=== PATIENT | male | born 1985 | race Hispanic/Latino ===

== ENCOUNTER 2017-11-25 14:29 | Emergency (ER) | payer OTHER ==
[2017-11-25 15:08] LABS: BASOPHILS % (AUTO) 0.9 % (0.0-5.0); EOSINOPHILS % (AUTO) 3.8 % (0.0-8.0); HEMATOCRIT 54.6 % (42-54); LYMPHOCYTES % (AUTO) 29.7 % (21.0-51.0); MEAN CORPUSCULAR HEMOGLOBIN 26.6 pg (27.0-33.0); MEAN CORPUSCULAR HGB CONC 34.2 g/dL (32.0-36.0); MEAN CORPUSCULAR VOLUME 77.9 fL (79-99); MONOCYTES % (AUTO) 8.7 % (3.0-13.0); NEUTROPHILS % (AUTO) 56.9 % (40.0-77.0); NUCLEATED RED BLOOD CELLS 0.1 % (0.0-0.19); PLATELET COUNT (AUTO) 182 K/uL (130-400); RED BLOOD CELL COUNT(AUTO) 7.01 MIL/uL (4.50-6.20); RED CELL DISTRIBUTION WIDTH 14.5 % (11.0-15.5); WHITE BLOOD COUNT (AUTO) 5.5 K/uL (4.8-10.8)
[2017-11-25 15:19] LABS: CREATININE 0.9 mg/dL (0.5-1.5); POTASSIUM 3.9 mmol/L (3.5-5.1)
[2017-11-25 15:24] LABS: BILIRUBIN,TOTAL 1.1 mg/dL (0.2-1.0); TOTAL PROTEIN, SERUM 7.6 g/dL (6.0-8.3)
== END 2017-11-25 15:48 | disposition home or self-care (01) ==
LOC: EDH 14:29
DX: E11.9 Type 2 diabetes mellitus without complications (principal)
CPT/HCPCS: 36415; 80053; 82948; 85025

== ENCOUNTER 2018-07-13 09:32 | Emergency (ER) | payer SELFPAY | END 2018-07-13 12:00 | disposition home or self-care (01) | LOC: EDH 09:32 | DX: R51 Headache (principal); M25.561 Pain in right knee; E11.9 Type 2 diabetes mellitus without complications; Z72.0 Tobacco use | CPT/HCPCS: 70450; 73562 ==

== ENCOUNTER 2018-11-30 19:41 | Emergency (ER) | payer SELFPAY ==
[2018-11-30] MEDS ORDERED: KETOROLAC TROMETHAMINE 30MG/ML ONE (21:09)
== END 2018-11-30 21:16 | disposition home or self-care (01) ==
LOC: EDH 19:41
DX: S83.61XA Sprain of the superior tibiofibular joint and ligament, right knee, initial encounter (principal); E11.9 Type 2 diabetes mellitus without complications; X50.1XXA Overexertion from prolonged static or awkward postures, initial encounter; Y93.89 Activity, other specified; Y92.89 Other specified places as the place of occurrence of the external cause; Y99.8 Other external cause status
CPT/HCPCS: 96372; 99283; J1885; 96361; 96374; 96375

== ENCOUNTER 2019-01-31 00:12 | Emergency (ER) | payer OTHER ==
[2019-01-31 00:54] LABS: BASOPHILS % (AUTO) 0.8 % (0.0-5.0); EOSINOPHILS % (AUTO) 6.2 % (0.0-8.0); HEMATOCRIT 53.6 % (42-54); LYMPHOCYTES % (AUTO) 36.8 % (21.0-51.0); MEAN CORPUSCULAR HEMOGLOBIN 26.6 pg (27.0-33.0); MEAN CORPUSCULAR HGB CONC 33.9 g/dL (32.0-36.0); MEAN CORPUSCULAR VOLUME 78.4 fL (79-99); MONOCYTES % (AUTO) 7.5 % (3.0-13.0); NEUTROPHILS % (AUTO) 48.7 % (40.0-77.0); NUCLEATED RED BLOOD CELLS 0.1 % (0.0-0.19); PLATELET COUNT (AUTO) 153 K/uL (130-400); RED BLOOD CELL COUNT(AUTO) 6.84 MIL/uL (4.50-6.20); WHITE BLOOD COUNT (AUTO) 7.6 K/uL (4.8-10.8)
[2019-01-31 01:10] LABS: INR 0.98 (0.85-1.15); PARTIAL THROMBOPLASTIN TIME 24.5 SEC (26.3-35.5); PROTHROMBIN TIME 10.3 SEC (9.6-11.6)
[2019-01-31 01:21] LABS: CREATININE 1.1 mg/dL (0.5-1.5)
[2019-01-31 01:27] LABS: ALBUMIN 3.6 g/dL (3.5-5.0); BILIRUBIN,TOTAL 0.4 mg/dL (0.2-1.0); TOTAL PROTEIN, SERUM 7.3 g/dL (6.0-8.3)
[2019-01-31] MEDS ORDERED: ONDANSETRON HCL 4 MG/2 ML VIAL ONE (02:12)
[2019-01-31] MEDS ORDERED: KETOROLAC TROMETHAMINE 30MG/ML ONE (02:12)
[2019-01-31] MEDS ORDERED: INSULIN HUMULIN R 100 UNIT/ML 3ML ONE (02:29)
== END 2019-01-31 02:41 | disposition home or self-care (01) ==
LOC: EDH 00:12
DX: R07.89 Other chest pain (principal); E11.9 Type 2 diabetes mellitus without complications; Z72.0 Tobacco use
CPT/HCPCS: 36415; 71045; 80053; 82550; 83874; 84484; 85025; 85610; 85730; 93005; 96374; 96375; 99285; J1815; J1885; J2405

== ENCOUNTER 2019-08-12 08:09 | Emergency (ER) | payer SELFPAY | END 2019-08-12 09:08 | disposition home or self-care (01) | LOC: EDH 08:09 | DX: R05 Cough (principal); R11.0 Nausea; R42 Dizziness and giddiness; E11.9 Type 2 diabetes mellitus without complications; Z87.891 Personal history of nicotine dependence; Z79.899 Other long term (current) drug therapy; Z79.84 Long term (current) use of oral hypoglycemic drugs | CPT/HCPCS: 99281 ==

== ENCOUNTER 2019-09-14 14:23 | Emergency (ER) | payer SELFPAY ==
[2019-09-14] MEDS ORDERED: ONDANSETRON HCL 4 MG/2 ML VIAL ONE (14:40)
[2019-09-14 14:49] LABS: BASOPHILS % (AUTO) 0.9 % (0.0-5.0); EOSINOPHILS % (AUTO) 4.4 % (0.0-8.0); HEMATOCRIT 57.1 % (42-54); LYMPHOCYTES % (AUTO) 28.6 % (21.0-51.0); MEAN CORPUSCULAR HEMOGLOBIN 25.6 pg (27.0-33.0); MEAN CORPUSCULAR HGB CONC 33.6 g/dL (32.0-36.0); MEAN CORPUSCULAR VOLUME 76.2 fL (79-99); MONOCYTES % (AUTO) 8.1 % (3.0-13.0); NEUTROPHILS % (AUTO) 57.3 % (40.0-77.0); PLATELET COUNT (AUTO) 182 K/uL (130-400); RED BLOOD CELL COUNT(AUTO) 7.49 MIL/uL (4.50-6.20); RED CELL DISTRIBUTION WIDTH 14.8 % (11.0-15.5); WHITE BLOOD COUNT (AUTO) 6.8 K/uL (4.8-10.8)
[2019-09-14 15:01] LABS: CREATININE 1.1 mg/dL (0.5-1.5); POTASSIUM 4.1 mmol/L (3.5-5.1)
[2019-09-14 15:08] LABS: ALBUMIN 3.9 g/dL (3.5-5.0); BILIRUBIN,TOTAL 0.9 mg/dL (0.2-1.0); TOTAL PROTEIN, SERUM 7.6 g/dL (6.0-8.3)
[2019-09-14] MEDS ORDERED: KETOROLAC TROMETHAMINE 15MG/ML ONE (15:18)
== END 2019-09-14 16:31 | disposition home or self-care (01) ==
LOC: EDH 14:23
DX: S29.011A Strain of muscle and tendon of front wall of thorax, initial encounter (principal); Z98.890 Other specified postprocedural states; X58.XXXA Exposure to other specified factors, initial encounter; Y93.89 Activity, other specified; Y92.89 Other specified places as the place of occurrence of the external cause; Y99.8 Other external cause status
CPT/HCPCS: 36415; 71045; 80053; 83690; 85025; 96374; 96375; 99284; J1885; J2405

== ENCOUNTER 2019-10-27 12:23 | Emergency (ER) | payer SELFPAY ==
[2019-10-27] MEDS ORDERED: KETOROLAC TROMETHAMINE 30MG/ML ONE (13:27)
[2019-10-27 13:30] LABS: BASOPHILS % (AUTO) 1.1 % (0.0-5.0); EOSINOPHILS % (AUTO) 4.2 % (0.0-8.0); HEMATOCRIT 55.7 % (42-54); LYMPHOCYTES % (AUTO) 29.8 % (21.0-51.0); MEAN CORPUSCULAR HEMOGLOBIN 26.1 pg (27.0-33.0); MEAN CORPUSCULAR HGB CONC 32.5 g/dL (32.0-36.0); MEAN CORPUSCULAR VOLUME 80.3 fL (79-99); MONOCYTES % (AUTO) 9.3 % (3.0-13.0); PLATELET COUNT (AUTO) 168 K/uL (130-400); RED BLOOD CELL COUNT(AUTO) 6.94 MIL/uL (4.50-6.20); WHITE BLOOD COUNT (AUTO) 4.7 K/uL (4.8-10.8)
[2019-10-27 13:36] LABS: APPEARANCE,URINE Clear (CLEAR); BILIRUBIN,URINE Negative (NEGATIVE); COLOR,URINE Yellow (YELLOW); GLUCOSE, URINE (UA) >=1000 mg/dL (NEGATIVE); KETONES,URINE Trace mg/dL (NEGATIVE); LEUKOCYTE ESTERASE ,URINE Negative (NEGATIVE); NITRATE,URINE Negative (NEGATIVE); OCCULT BLOOD,URINE Negative (NEGATIVE); PH,URINE 7.5 (5.0-8.0); PROTEIN,URINE Negative (NEGATIVE)
[2019-10-27 13:45] LABS: CREATININE 1.1 mg/dL (0.5-1.5); POTASSIUM 4.1 mmol/L (3.5-5.1)
[2019-10-27 13:50] LABS: ALBUMIN 3.7 g/dL (3.5-5.0)
[2019-10-27 13:53] LABS: BACTERIA,URINE None Seen /HPF (None Seen); RBC,URINE 0-1 /HPF (0-1)
[2019-10-27 13:54] LABS: SQUAMOUS EPITHELIAL CELL,UR 0-2 /HPF (0-2)
[2019-10-27] MEDS ORDERED: INSULIN HUMULIN R 100 UNIT/ML 3ML ONE (13:57)
== END 2019-10-27 15:44 | disposition home or self-care (01) ==
LOC: EDH 12:23
DX: N30.00 Acute cystitis without hematuria (principal); E11.65 Type 2 diabetes mellitus with hyperglycemia
CPT/HCPCS: 36415; 76870; 80053; 81001; 82948 ×2; 85025; 87486; 87797; 96374; 96375; 99284; J1815; J1885

== ENCOUNTER 2019-12-15 19:22 | Emergency (ER) | payer OTHER, SELFPAY ==
[2019-12-15 20:59] LABS: EOSINOPHILS % (AUTO) 2.7 % (0.0-8.0); LYMPHOCYTES % (AUTO) 29.2 % (21.0-51.0); MEAN CORPUSCULAR HEMOGLOBIN 26.1 pg (27.0-33.0); MEAN CORPUSCULAR HGB CONC 33.6 g/dL (32.0-36.0); MEAN CORPUSCULAR VOLUME 77.6 fL (79-99); MONOCYTES % (AUTO) 7.7 % (3.0-13.0); NEUTROPHILS % (AUTO) 58.9 % (40.0-77.0); PLATELET COUNT (AUTO) 196 K/uL (130-400); RED CELL DISTRIBUTION WIDTH 15.9 % (11.0-15.5); WHITE BLOOD COUNT (AUTO) 7.8 K/uL (4.8-10.8)
[2019-12-15 21:11] LABS: RED BLOOD CELL COUNT(AUTO) 8.02 MIL/uL (4.50-6.20)
[2019-12-15 21:12] LABS: CREATININE 1.2 mg/dL (0.5-1.5); POTASSIUM 4.6 mmol/L (3.5-5.1)
[2019-12-15 21:16] LABS: ALBUMIN 4.1 g/dL (3.5-5.0); BILIRUBIN,TOTAL 0.6 mg/dL (0.2-1.0); HEMATOCRIT 62.2 % (42-54); TOTAL PROTEIN, SERUM 7.5 g/dL (6.0-8.3)
[2019-12-15] MEDS ORDERED: SODIUM CHLORIDE 0.9% 1000ML 2,000 ML IV ONE (21:28)
[2019-12-15 22:29] LABS: APPEARANCE,URINE Clear (CLEAR); BILIRUBIN,URINE Negative (NEGATIVE); COLOR,URINE Yellow (YELLOW); GLUCOSE, URINE (UA) >=1000 mg/dL (NEGATIVE); KETONES,URINE 15 mg/dL (NEGATIVE); LEUKOCYTE ESTERASE ,URINE Negative (NEGATIVE); NITRATE,URINE Negative (NEGATIVE); OCCULT BLOOD,URINE Negative (NEGATIVE); PROTEIN,URINE Negative (NEGATIVE)
[2019-12-15 22:54] LABS: BACTERIA,URINE Rare /HPF (None Seen); RBC,URINE None Seen /HPF (0-1); SQUAMOUS EPITHELIAL CELL,UR 0-2 /HPF (0-2)
== END 2019-12-15 22:52 | disposition home or self-care (01) ==
LOC: EDH 19:22
DX: E13.65 Other specified diabetes mellitus with hyperglycemia (principal); J09.X1 Influenza due to identified novel influenza A virus with pneumonia; R06.02 Shortness of breath; R51 Headache; Z20.828 Contact with and (suspected) exposure to other viral communicable diseases
CPT/HCPCS: 36415; 71045; 80053; 81001; 85025; 87804 ×2; 96360; 96361; 99284; J7030; U0003

== ENCOUNTER 2020-02-02 10:23 | Emergency (ER) | payer OTHER, SELFPAY | END 2020-02-02 13:05 | disposition home or self-care (01) | LOC: EDH 10:23 | DX: R50.9 Fever, unspecified (principal); Z20.828 Contact with and (suspected) exposure to other viral communicable diseases; E11.9 Type 2 diabetes mellitus without complications; Z87.891 Personal history of nicotine dependence | CPT/HCPCS: 87426; 87804 ==

== ENCOUNTER 2020-02-14 21:58 | Emergency (ER) | payer OTHER ==
[2020-02-14] MEDS ORDERED: PROCHLORPERAZINE EDISYLATE 10 MG/2 ML VIAL ONE (22:25)
[2020-02-14] MEDS ORDERED: KETOROLAC TROMETHAMINE 30MG/ML ONE (22:25)
[2020-02-14 22:39] LABS: HEMATOCRIT 56.4 % (42-54); LYMPHOCYTES % (AUTO) 32.4 % (21.0-51.0); MEAN CORPUSCULAR HEMOGLOBIN 26.2 pg (27.0-33.0); NEUTROPHILS % (AUTO) 54.5 % (40.0-77.0); PLATELET COUNT (AUTO) 181 K/uL (130-400); RED BLOOD CELL COUNT(AUTO) 7.32 MIL/uL (4.50-6.20); RED CELL DISTRIBUTION WIDTH 14.9 % (11.0-15.5); WHITE BLOOD COUNT (AUTO) 7.3 K/uL (4.8-10.8)
[2020-02-14 22:47] LABS: CREATININE 1.1 mg/dL (0.5-1.5); POTASSIUM 4.2 mmol/L (3.5-5.1)
[2020-02-14 22:53] LABS: ALBUMIN 3.5 g/dL (3.5-5.0); BILIRUBIN,TOTAL 0.7 mg/dL (0.2-1.0)
[2020-02-14 23:22] LABS: APPEARANCE,URINE Clear (CLEAR); BILIRUBIN,URINE Negative (NEGATIVE); COLOR,URINE Yellow (YELLOW); GLUCOSE, URINE (UA) >=1000 mg/dL (NEGATIVE); KETONES,URINE 40 mg/dL (NEGATIVE); LEUKOCYTE ESTERASE ,URINE Negative (NEGATIVE); NITRATE,URINE Negative (NEGATIVE); OCCULT BLOOD,URINE Negative (NEGATIVE); PROTEIN,URINE Negative (NEGATIVE); UROBILINOGEN,URINE 0.2 mg/dL (0.2-1.0)
[2020-02-14 23:30] LABS: AMPHET/METH SCREEN,URINE NEGATIVE (NEGATIVE); BARBITURATE SCREEN, URINE NEGATIVE (NEGATIVE); BENZODIAZEPINES SCREEN,URINE NEGATIVE (NEGATIVE); CANNABINOID SCREEN,URINE NEGATIVE (NEGATIVE); COCAINE SCREEN,URINE NEGATIVE (NEGATIVE); OPIATE SCREEN,URINE NEGATIVE (NEGATIVE); PHENCYCLIDINE SCREEN,URINE NEGATIVE (NEGATIVE)
[2020-02-14 23:32] LABS: BACTERIA,URINE None Seen /HPF (None Seen); RBC,URINE None Seen /HPF (0-1); WBC,URINE None Seen /HPF (0-1)
== END 2020-02-15 00:05 | disposition home or self-care (01) ==
LOC: EDH 21:58
DX: G44.209 Tension-type headache, unspecified, not intractable (principal); E11.9 Type 2 diabetes mellitus without complications; R11.2 Nausea with vomiting, unspecified; Z79.84 Long term (current) use of oral hypoglycemic drugs
CPT/HCPCS: 36415; 70450; 80053; 80305; 81001; 85025; 96374; 96375; 99284; J0780; J1885

== ENCOUNTER 2020-03-19 13:06 | Emergency (ER) | payer OTHER ==
[2020-03-19 13:42] LABS: BASOPHILS % (AUTO) 0.8 % (0.0-5.0); EOSINOPHILS % (AUTO) 3.2 % (0.0-8.0); HEMATOCRIT 57.5 % (42-54); MEAN CORPUSCULAR HEMOGLOBIN 25.8 pg (27.0-33.0); MEAN CORPUSCULAR HGB CONC 32.9 g/dL (32.0-36.0); MEAN CORPUSCULAR VOLUME 78.6 fL (79-99); MONOCYTES % (AUTO) 7.9 % (3.0-13.0); NEUTROPHILS % (AUTO) 60.1 % (40.0-77.0); PLATELET COUNT (AUTO) 184 K/uL (130-400); RED BLOOD CELL COUNT(AUTO) 7.32 MIL/uL (4.50-6.20); WHITE BLOOD COUNT (AUTO) 7.1 K/uL (4.8-10.8)
[2020-03-19 13:59] LABS: ALBUMIN 3.9 g/dL (3.5-5.0); BILIRUBIN,TOTAL 0.6 mg/dL (0.2-1.0); CREATININE 0.9 mg/dL (0.5-1.5); POTASSIUM 4.2 mmol/L (3.5-5.1); TOTAL PROTEIN, SERUM 7.4 g/dL (6.0-8.3)
[2020-03-19 14:11] LABS: APPEARANCE,URINE Clear (CLEAR); BILIRUBIN,URINE Negative (NEGATIVE); COLOR,URINE Yellow (YELLOW); GLUCOSE, URINE (UA) >=1000 mg/dL (NEGATIVE); KETONES,URINE Trace mg/dL (NEGATIVE); LEUKOCYTE ESTERASE ,URINE Negative (NEGATIVE); NITRATE,URINE Negative (NEGATIVE); OCCULT BLOOD,URINE Negative (NEGATIVE); PROTEIN,URINE Negative (NEGATIVE); UROBILINOGEN,URINE 0.2 mg/dL (0.2-1.0)
[2020-03-19 14:27] LABS: RBC,URINE 0-1 /HPF (0-1)
[2020-03-19 14:28] LABS: BACTERIA,URINE Rare /HPF (None Seen); SQUAMOUS EPITHELIAL CELL,UR Rare /HPF (0-2); URIC ACID CRYSTALS,URINE Rare /LPF (None Seen)
== END 2020-03-19 15:06 | disposition home or self-care (01) ==
LOC: EDH 13:06
DX: E11.65 Type 2 diabetes mellitus with hyperglycemia (principal); D58.2 Other hemoglobinopathies
CPT/HCPCS: 36415; 80053; 81001; 82948; 85025

== ENCOUNTER 2020-04-16 22:25 | Emergency (ER) | payer SELFPAY ==
[2020-04-16] MEDS ORDERED: ACETAMINOPHEN-CODEINE 300/30MG TAB ONE (22:56)
[2020-04-16 23:05] LABS: BASOPHILS % (AUTO) 0.6 % (0.0-5.0); EOSINOPHILS % (AUTO) 2.6 % (0.0-8.0); HEMATOCRIT 58.8 % (42-54); LYMPHOCYTES % (AUTO) 36.9 % (21.0-51.0); MEAN CORPUSCULAR HEMOGLOBIN 25.9 pg (27.0-33.0); MEAN CORPUSCULAR HGB CONC 32.8 g/dL (32.0-36.0); MONOCYTES % (AUTO) 7.6 % (3.0-13.0); PLATELET COUNT (AUTO) 182 K/uL (130-400); RED BLOOD CELL COUNT(AUTO) 7.44 MIL/uL (4.50-6.20); RED CELL DISTRIBUTION WIDTH 15.3 % (11.0-15.5); WHITE BLOOD COUNT (AUTO) 8.4 K/uL (4.8-10.8)
[2020-04-16 23:13] LABS: CREATININE 1.1 mg/dL (0.5-1.5); POTASSIUM 3.9 mmol/L (3.5-5.1)
[2020-04-16 23:18] LABS: BILIRUBIN,TOTAL 0.5 mg/dL (0.2-1.0); TOTAL PROTEIN, SERUM 7.8 g/dL (6.0-8.3)
[2020-04-16 23:23] LABS: APPEARANCE,URINE Clear (CLEAR); BILIRUBIN,URINE Negative (NEGATIVE); COLOR,URINE Yellow (YELLOW); GLUCOSE, URINE (UA) >=1000 mg/dL (NEGATIVE); KETONES,URINE 15 mg/dL (NEGATIVE); LEUKOCYTE ESTERASE ,URINE Negative (NEGATIVE); NITRATE,URINE Negative (NEGATIVE); OCCULT BLOOD,URINE Negative (NEGATIVE); PROTEIN,URINE Trace mg/dL (NEGATIVE)
[2020-04-16 23:29] LABS: RBC,URINE 0-1 /HPF (0-1)
[2020-04-16 23:30] LABS: BACTERIA,URINE None Seen /HPF (None Seen); SQUAMOUS EPITHELIAL CELL,UR Rare /HPF (0-2); WBC,URINE None Seen /HPF (0-1)
== END 2020-04-17 00:42 | disposition home or self-care (01) ==
LOC: EDH 22:25
DX: J06.9 Acute upper respiratory infection, unspecified (principal); E86.0 Dehydration; E78.5 Hyperlipidemia, unspecified; E11.9 Type 2 diabetes mellitus without complications; Z20.828 Contact with and (suspected) exposure to other viral communicable diseases
CPT/HCPCS: 36415; 71045; 80053; 81001; 85025; 87426; 87804 ×2; 87880; 96360; 99284; U0003

== ENCOUNTER 2020-05-15 12:48 | Emergency (ER) | payer SELFPAY ==
[2020-05-15 13:56] LABS: APPEARANCE,URINE CLEAR (CLEAR); BILIRUBIN,URINE NEGATIVE (NEGATIVE); COLOR,URINE YELLOW (YELLOW); GLUCOSE, URINE (UA) >=1000 mg/dL (NEGATIVE); KETONES,URINE 15 mg/dL (NEGATIVE); LEUKOCYTE ESTERASE ,URINE NEGATIVE (NEGATIVE); NITRATE,URINE NEGATIVE (NEGATIVE); OCCULT BLOOD,URINE NEGATIVE (NEGATIVE); PROTEIN,URINE 30 mg/dL (NEGATIVE); UROBILINOGEN,URINE 0.2 mg/dL (0.2-1.0)
[2020-05-15 14:03] LABS: AMPHET/METH SCREEN,URINE POSITIVE (NEGATIVE); BARBITURATE SCREEN, URINE NEGATIVE (NEGATIVE); BENZODIAZEPINES SCREEN,URINE NEGATIVE (NEGATIVE); CANNABINOID SCREEN,URINE NEGATIVE (NEGATIVE); COCAINE SCREEN,URINE NEGATIVE (NEGATIVE); OPIATE SCREEN,URINE NEGATIVE (NEGATIVE); PHENCYCLIDINE SCREEN,URINE NEGATIVE (NEGATIVE)
[2020-05-15 14:07] LABS: BACTERIA,URINE None Seen /HPF (None Seen); HYALINE CASTS, URINE 0-1 /LPF (0-1 /LPF); RBC,URINE 0-1 /HPF (0-1); WBC,URINE 0-1 /HPF (0-1)
[2020-05-15] MEDS ORDERED: SODIUM CHLORIDE 0.9% 1000ML 1,000 ML IV ONE (14:19)
[2020-05-15] MEDS ORDERED: ACETAMINOPHEN 325 MG TAB ONE (14:19)
[2020-05-15 14:27] LABS: EOSINOPHILS % (AUTO) 2.2 % (0.0-8.0); LYMPHOCYTES % (AUTO) 28.3 % (21.0-51.0); MEAN CORPUSCULAR HEMOGLOBIN 26.4 pg (27.0-33.0); MEAN CORPUSCULAR VOLUME 77.5 fL (79-99); MONOCYTES % (AUTO) 7.8 % (3.0-13.0); NEUTROPHILS % (AUTO) 59.7 % (40.0-77.0); PLATELET COUNT (AUTO) 194 K/uL (130-400); RED BLOOD CELL COUNT(AUTO) 7.81 MIL/uL (4.50-6.20); RED CELL DISTRIBUTION WIDTH 14.6 % (11.0-15.5); WHITE BLOOD COUNT (AUTO) 6.8 K/uL (4.8-10.8)
[2020-05-15 14:30] LABS: HEMATOCRIT 60.5 % (42-54)
[2020-05-15 14:52] LABS: ALBUMIN 4.1 g/dL (3.5-5.0); BILIRUBIN,TOTAL 0.8 mg/dL (0.2-1.0); CREATININE 1.1 mg/dL (0.5-1.5); POTASSIUM 4.2 mmol/L (3.5-5.1); TOTAL PROTEIN, SERUM 7.9 g/dL (6.0-8.3)
[2020-05-15 15:45] LABS: ABG BASE EXCESS -0.1 mmol/L (-2.0-3.0); ABG HCO3 24.2 mmol/L (21.0-28.0); ABG OXYGEN SATURATION 97.2 % (95.0-99.0); ABG PCO2 38 mmHg (35-48)
== END 2020-05-15 18:20 | disposition home or self-care (01) ==
LOC: EDH 12:48
DX: R53.83 Other fatigue (principal); D45 Polycythemia vera; Z20.828 Contact with and (suspected) exposure to other viral communicable diseases; E11.9 Type 2 diabetes mellitus without complications; Z98.890 Other specified postprocedural states
CPT/HCPCS: 36415; 36600; 71045; 80053; 80305; 81001; 82550; 82803; 83605; 84484 ×2; 85025; 87040 ×2; 87426; 93005 ×3; 96360; 99285; J7030; U0003

== ENCOUNTER 2020-06-17 03:56 | Emergency (ER) | payer OTHER ==
[2020-06-17] MEDS ORDERED: ACETAMINOPHEN EXTRA STRENGTH 500 MG TABLET ONE (04:06)
[2020-06-17] MEDS ORDERED: ONDANSETRON ODT 4 MG TAB ONE (04:17)
== END 2020-06-17 05:40 | disposition home or self-care (01) ==
LOC: EDH 03:56
DX: U07.1 COVID-19 (principal); E11.9 Type 2 diabetes mellitus without complications; Z79.899 Other long term (current) drug therapy
CPT/HCPCS: 71045; 87426

== ENCOUNTER 2020-06-20 23:28 | Emergency (ER) | payer OTHER ==
[2020-06-21] MEDS ORDERED: SODIUM CHLORIDE 0.9% 1000ML 1,000 ML IV ONE (00:49)
[2020-06-21] MEDS ORDERED: ONDANSETRON HCL 4 MG/2 ML VIAL ONE (00:50)
[2020-06-21] MEDS ORDERED: KETOROLAC TROMETHAMINE 30MG/ML ONE (00:50)
[2020-06-21 02:26] LABS: BASOPHILS % (AUTO) 0.4 % (0.0-5.0); EOSINOPHILS % (AUTO) 0.2 % (0.0-8.0); HEMATOCRIT 58.9 % (42-54); LYMPHOCYTES % (AUTO) 20.3 % (21.0-51.0); MEAN CORPUSCULAR HEMOGLOBIN 25.8 pg (27.0-33.0); MEAN CORPUSCULAR HGB CONC 32.6 g/dL (32.0-36.0); MEAN CORPUSCULAR VOLUME 79.1 fL (79-99); MONOCYTES % (AUTO) 9.7 % (3.0-13.0); PLATELET COUNT (AUTO) 118 K/uL (130-400); RED BLOOD CELL COUNT(AUTO) 7.45 MIL/uL (4.50-6.20); RED CELL DISTRIBUTION WIDTH 14.3 % (11.0-15.5); WHITE BLOOD COUNT (AUTO) 4.6 K/uL (4.8-10.8)
[2020-06-21 02:29] LABS: POTASSIUM 4.1 mmol/L (3.5-5.1)
[2020-06-21 02:34] LABS: ALBUMIN 3.1 g/dL (3.5-5.0); BILIRUBIN,TOTAL 1.2 mg/dL (0.2-1.0); CRP QUANTITATIVE 114.2 mg/L (0.00-9.0); TOTAL PROTEIN, SERUM 7.6 g/dL (6.0-8.3)
== END 2020-06-21 03:39 | disposition home or self-care (01) ==
LOC: EDH 23:28
DX: U07.1 COVID-19 (principal); R19.7 Diarrhea, unspecified; R11.2 Nausea with vomiting, unspecified; E11.9 Type 2 diabetes mellitus without complications; Z98.890 Other specified postprocedural states
CPT/HCPCS: 36415; 80053; 85025; 86140; 96361; 96374; 96375; 99284; J1885; J2405; J7030

== ENCOUNTER 2020-06-28 05:14 | Emergency (ER) | payer SELFPAY ==
[2020-06-28] MEDS ORDERED: KETOROLAC TROMETHAMINE 30MG/ML ONE (05:38)
[2020-06-28] MEDS ORDERED: CLONIDINE HCL 0.1 MG TABLET ONE (05:52)
== END 2020-06-28 07:08 | disposition home or self-care (01) ==
LOC: EDH 05:14
DX: G43.909 Migraine, unspecified, not intractable, without status migrainosus (principal); G44.219 Episodic tension-type headache, not intractable; E11.9 Type 2 diabetes mellitus without complications
CPT/HCPCS: 82948; 96372 ×2; 99284; J1885

== ENCOUNTER 2020-07-14 18:06 | Emergency (ER) | payer SELFPAY ==
[2020-07-14] MEDS ORDERED: ASPIRIN 325 MG TABLET ONE (18:14)
[2020-07-14 18:28] LABS: APPEARANCE,URINE Clear (CLEAR); BILIRUBIN,URINE Negative (NEGATIVE); COLOR,URINE Yellow (YELLOW); GLUCOSE, URINE (UA) >=1000 mg/dL (NEGATIVE); KETONES,URINE Trace mg/dL (NEGATIVE); LEUKOCYTE ESTERASE ,URINE Negative (NEGATIVE); NITRATE,URINE Negative (NEGATIVE); OCCULT BLOOD,URINE Negative (NEGATIVE); PROTEIN,URINE Negative (NEGATIVE); UROBILINOGEN,URINE 0.2 mg/dL (0.2-1.0)
[2020-07-14 18:33] LABS: BASOPHILS % (AUTO) 0.7 % (0.0-5.0); LYMPHOCYTES % (AUTO) 31.8 % (21.0-51.0); MEAN CORPUSCULAR VOLUME 76.5 fL (79-99); MONOCYTES % (AUTO) 9.2 % (3.0-13.0); NEUTROPHILS % (AUTO) 53.7 % (40.0-77.0); PLATELET COUNT (AUTO) 156 K/uL (130-400); RED BLOOD CELL COUNT(AUTO) 6.93 MIL/uL (4.50-6.20); RED CELL DISTRIBUTION WIDTH 14.3 % (11.0-15.5); WHITE BLOOD COUNT (AUTO) 5.4 K/uL (4.8-10.8)
[2020-07-14 18:37] LABS: AMPHET/METH SCREEN,URINE NEGATIVE (NEGATIVE); BARBITURATE SCREEN, URINE NEGATIVE (NEGATIVE); BENZODIAZEPINES SCREEN,URINE NEGATIVE (NEGATIVE); CANNABINOID SCREEN,URINE NEGATIVE (NEGATIVE); COCAINE SCREEN,URINE NEGATIVE (NEGATIVE); OPIATE SCREEN,URINE NEGATIVE (NEGATIVE); PHENCYCLIDINE SCREEN,URINE NEGATIVE (NEGATIVE)
[2020-07-14 18:38] LABS: BACTERIA,URINE None Seen /HPF (None Seen); RBC,URINE 0-1 /HPF (0-1); SQUAMOUS EPITHELIAL CELL,UR Few /HPF (0-2); WBC,URINE 0-1 /HPF (0-1)
[2020-07-14 18:48] LABS: INR 1.03 (0.85-1.15); POTASSIUM 3.8 mmol/L (3.5-5.1); PROTHROMBIN TIME 11.2 SEC (9.6-11.6)
[2020-07-14 18:49] LABS: PARTIAL THROMBOPLASTIN TIME 24.9 SEC (26.3-35.5)
[2020-07-14 18:53] LABS: ALBUMIN 3.7 g/dL (3.5-5.0); TOTAL PROTEIN, SERUM 7.3 g/dL (6.0-8.3)
[2020-07-14] MEDS ORDERED: INSULIN HUMULIN R 100 UNIT/ML 3ML ONE (19:26)
[2020-07-14] MEDS ORDERED: SODIUM CHLORIDE 0.9% 1000ML 1,000 ML IV ONE (19:39)
== END 2020-07-14 20:50 | disposition home or self-care (01) ==
LOC: EDH 18:06
DX: R07.89 Other chest pain (principal); E11.65 Type 2 diabetes mellitus with hyperglycemia
CPT/HCPCS: 36415; 71045; 80053; 80305; 81001; 82550; 82948; 84484; 85025; 85610; 85730; 93005; 96361; 96374; 99285; J1815; J7030

== ENCOUNTER 2020-08-11 17:33 | Emergency (ER) | payer SELFPAY ==
[2020-08-11 18:14] LABS: BASOPHILS % (AUTO) 1.1 % (0.0-5.0); EOSINOPHILS % (AUTO) 4.8 % (0.0-8.0); HEMATOCRIT 53.7 % (42-54); MEAN CORPUSCULAR HEMOGLOBIN 26.5 pg (27.0-33.0); MEAN CORPUSCULAR HGB CONC 33.5 g/dL (32.0-36.0); MONOCYTES % (AUTO) 9.6 % (3.0-13.0); NEUTROPHILS % (AUTO) 52.1 % (40.0-77.0); PLATELET COUNT (AUTO) 201 K/uL (130-400); RED CELL DISTRIBUTION WIDTH 15.7 % (11.0-15.5); WHITE BLOOD COUNT (AUTO) 5.7 K/uL (4.8-10.8)
[2020-08-11 18:23] LABS: POTASSIUM 4.2 mmol/L (3.5-5.1)
[2020-08-11 18:28] LABS: ALBUMIN 3.8 g/dL (3.5-5.0); BILIRUBIN,TOTAL 0.6 mg/dL (0.2-1.0); TOTAL PROTEIN, SERUM 7.2 g/dL (6.0-8.3)
== END 2020-08-11 19:23 | disposition home or self-care (01) ==
LOC: EDH 17:33
DX: E11.65 Type 2 diabetes mellitus with hyperglycemia (principal); Z86.16 Personal history of COVID-19; Z98.890 Other specified postprocedural states
CPT/HCPCS: 36415; 80053; 82948; 85025

== ENCOUNTER 2020-08-29 07:40 | Emergency (ER) | payer OTHER, SELFPAY ==
[2020-08-29 08:07] LABS: BASOPHILS % (AUTO) 0.8 % (0.0-5.0); EOSINOPHILS % (AUTO) 3.4 % (0.0-8.0); LYMPHOCYTES % (AUTO) 31.2 % (21.0-51.0); MEAN CORPUSCULAR HEMOGLOBIN 26.7 pg (27.0-33.0); MEAN CORPUSCULAR VOLUME 78.3 fL (79-99); PLATELET COUNT (AUTO) 170 K/uL (130-400); RED BLOOD CELL COUNT(AUTO) 6.64 MIL/uL (4.50-6.20); RED CELL DISTRIBUTION WIDTH 16.3 % (11.0-15.5); WHITE BLOOD COUNT (AUTO) 6.3 K/uL (4.8-10.8)
[2020-08-29 08:20] LABS: ALBUMIN 3.5 g/dL (3.5-5.0); CREATININE 0.9 mg/dL (0.5-1.5); POTASSIUM 3.5 mmol/L (3.5-5.1)
[2020-08-29 08:31] LABS: BILIRUBIN,TOTAL 0.9 mg/dL (0.2-1.0); TOTAL PROTEIN, SERUM 6.5 g/dL (6.0-8.3)
== END 2020-08-29 11:50 | disposition home or self-care (01) ==
LOC: EDH 07:40
DX: R07.89 Other chest pain (principal); R06.00 Dyspnea, unspecified; F32.89 Other specified depressive episodes; E11.9 Type 2 diabetes mellitus without complications; Z86.16 Personal history of COVID-19; Z98.890 Other specified postprocedural states
CPT/HCPCS: 36415; 71046; 80053; 82550; 83690; 84484; 85025; 85378; 93005

== ENCOUNTER 2021-12-24 08:50 | Emergency (ER) | payer OTHER ==
[~2021-12-24] VITALS: Ht 180.3 cm; Wt 135.6 kg
[2021-12-24] MEDS ORDERED: ACETAMINOPHEN 500 MG TABLET PO STA (09:06)
[2021-12-24] MEDS ORDERED: 0.9%NACL 1000ML 1,000 ML IV ONE ×2 (09:30→10:30)
[2021-12-24 09:35] LABS: CREATININE 0.9 mg/dL (0.5-1.5)
[2021-12-24 09:40] LABS: ALBUMIN 3.8 g/dL (3.5-5.0); TOTAL PROTEIN, SERUM 7.5 g/dL (6.0-8.3)
[2021-12-24 09:44] LABS: EOSINOPHILS % (AUTO) 3.7 % (0.0-8.0); HEMATOCRIT 55.8 % (42-54); LYMPHOCYTES % (AUTO) 36.4 % (21.0-51.0); MEAN CORPUSCULAR HEMOGLOBIN 25.2 pg (27.0-33.0); MEAN CORPUSCULAR HGB CONC 33.3 g/dL (32.0-36.0); MEAN CORPUSCULAR VOLUME 75.6 fL (79-99); MONOCYTES % (AUTO) 8.1 % (3.0-13.0); NEUTROPHILS % (AUTO) 49.5 % (40.0-77.0); PLATELET COUNT (AUTO) 170 K/uL (130-400); RED BLOOD CELL COUNT(AUTO) 7.38 MIL/uL (4.50-6.20); RED CELL DISTRIBUTION WIDTH 15.2 % (11.0-15.5); WHITE BLOOD COUNT (AUTO) 5.9 K/uL (4.8-10.8)
[2021-12-24] MEDS ORDERED: ACET-66 PO (10:54)
[2021-12-24] MEDS ORDERED: OSEL75 PO (10:54)
[2021-12-24 11:16] VITALS: BP 144/87
[2021-12-24 11:19] LABS: APPEARANCE,URINE CLEAR (CLEAR); BILIRUBIN,URINE SMALL (NEGATIVE); COLOR,URINE YELLOW (YELLOW); GLUCOSE, URINE (UA) >=1000 mg/dL (NEGATIVE); KETONES,URINE 15 mg/dL (NEGATIVE); LEUKOCYTE ESTERASE ,URINE NEGATIVE (NEGATIVE); NITRATE,URINE NEGATIVE (NEGATIVE); OCCULT BLOOD,URINE NEGATIVE (NEGATIVE); PROTEIN,URINE NEGATIVE (NEGATIVE); UROBILINOGEN,URINE 0.2 mg/dL (0.2-1.0)
[2021-12-24 11:41] LABS: BACTERIA,URINE Rare /HPF (None Seen); RBC,URINE None Seen /HPF (0-1); WBC,URINE None Seen /HPF (0-1)
[2021-12-24 11:42] LABS: SQUAMOUS EPITHELIAL CELL,UR 0-2 /HPF (0-2)
[2021-12-24 16:39] LABS: AMPHET/METH SCREEN,URINE NEGATIVE (NEGATIVE); BARBITURATE SCREEN, URINE NEGATIVE (NEGATIVE); BENZODIAZEPINES SCREEN,URINE NEGATIVE (NEGATIVE); CANNABINOID SCREEN,URINE NEGATIVE (NEGATIVE); COCAINE SCREEN,URINE NEGATIVE (NEGATIVE); PHENCYCLIDINE SCREEN,URINE NEGATIVE (NEGATIVE)
== END 2021-12-24 11:17 | disposition home or self-care (01) ==
LOC: EDH 08:50
DX: E11.65 Type 2 diabetes mellitus with hyperglycemia (principal); J11.1 Influenza due to unidentified influenza virus with other respiratory manifestations; Z20.822 Contact with and (suspected) exposure to COVID-19
CPT/HCPCS: 99283; 96360; 87635; 96361; 82550; 80053; 80305; 85025; 87804 ×2; 36415; 81001; C9803; J7030

== ENCOUNTER 2023-04-02 11:25 | Emergency (ER) | payer OTHER ==
[~2023-04-02] VITALS: Ht 177.8 cm; Wt 142.9 kg
[~2023-04-02 11:25] MED LIST: ACET-66 PO; OSEL75 PO
[2023-04-02 11:30] VITALS: BP 167/92; PULSE 83; RESP 17
[2023-04-02 11:49] LABS: BASOPHILS # (AUTO) 0.05 K/uL (0.00-0.20); BASOPHILS % (AUTO) 0.7 % (0.0-5.0); EOSINOPHILS # (AUTO) 0.17 K/uL (0.00-0.70); EOSINOPHILS % (AUTO) 2.5 % (0.0-8.0); HEMATOCRIT 52.6 % (42-54); IMMATURE GRANULOCYTE ABSOLUTE 0.05 K/uL (0-1); LYMPHOCYTES # (AUTO) 2.1 K/uL (1.0-4.8); LYMPHOCYTES % (AUTO) 31.1 % (21.0-51.0); MEAN CORPUSCULAR HEMOGLOBIN 25.6 pg (27.0-33.0); MEAN CORPUSCULAR HGB CONC 33.1 g/dL (32.0-36.0); MEAN CORPUSCULAR VOLUME 77.5 fL (79-99); MONOCYTES # (AUTO) 0.6 K/uL (0.1-1.0); MONOCYTES % (AUTO) 9.1 % (3.0-13.0); NEUTROPHILS # (AUTO) 3.7 K/uL (1.8-7.7); NEUTROPHILS % (AUTO) 55.9 % (40.0-77.0); PLATELET COUNT (AUTO) 197 K/uL (130-400); RED BLOOD CELL COUNT(AUTO) 6.79 MIL/uL (4.50-6.20); RED CELL DISTRIBUTION WIDTH 15.2 % (11.0-15.5); WHITE BLOOD COUNT (AUTO) 6.7 K/uL (4.8-10.8)
[2023-04-02 12:00] LABS: CREATININE 1.1 mg/dL (0.5-1.5); INR 0.94 (0.85-1.15); POTASSIUM 3.8 mmol/L (3.5-5.1)
[2023-04-02 12:05] LABS: ALBUMIN 3.4 g/dL (3.5-5.0); BILIRUBIN,TOTAL 0.6 mg/dL (0.2-1.0)
[2023-04-02 12:19] LABS: B-TYPE NATRIURETIC PEPTIDE < 5 pg/mL (0-100)
[2023-04-02] MEDS ORDERED: HYD25 PO (13:20)
== END 2023-04-02 13:36 | disposition home or self-care (01) ==
LOC: EDH 11:25
DX: R07.89 Other chest pain (principal); F41.9 Anxiety disorder, unspecified; I10 Essential (primary) hypertension; Z79.899 Other long term (current) drug therapy
CPT/HCPCS: 36415; 71045; 80053; 83880; 84484; 85025; 85610; 93005

== ENCOUNTER 2025-01-29 15:20 | Emergency (ER) | payer SELFPAY ==
[~2025-01-29] VITALS: Ht 180.3 cm; Wt 143.3 kg
[~2025-01-29 15:20] MED LIST changes: +HYD25 PO
--- NOTE | 2025-01-29 15:30 | NUR ---
NOTIFIED MARIE LINK B/P 194/105
--- NOTE | 2025-01-29 15:38 | ERN ---
ED Note History of Present Illness Stated Complaint: EYE PROBLEM Chief Complaint: Hypertension Time Seen by MD: 15:23 Dictation: PATIENT IS A 39-YEAR-OLD MALE COMING IN TODAY WITH COMPLAINTS OF WAKING UP WITH A FOREIGN BODY SENSATION TO HIS LEFT EYE ONSET 1 HOUR PRIOR TO ARRIVAL. STATES HE TOOK A NAP THIS MORNING AND WHEN HE WOKE UP HE HAD THE SENSATION HOWEVER HE DENIES ANY CONTACT LENSES NO HEADACHE NO VISION CHANGES. ADDITIONALLY HE IS NOTED TO BE HYPERTENSIVE IN ER 194/105. STATES HE DOES HAVE A HISTORY OF DIABETES AND SEES A LOCAL CLINIC WAS NOT AWARE OF HIS HYPERTENSION. HE HAS NOT TAKEN ANYTHING PRIOR TO ARRIVAL FOR PAIN. PATIENT DOES STATE THAT HE IS SUPPOSED TO BE WEARING A CONTACT TO HIS LEFT EYE ONLY HOWEVER HE HAS NOT HAD IT IN SEVERAL YEARS. HE STATES HE CAN NOT RECALL THE NAME OF THE DOCTOR WHO PRESCRIBED FOR HIM. Allergies: Coded Allergies: No Known Drug Allergies (Unverified Allergy, Unknown, 01/31/19) Home Meds Active Scripts Hydroxyzine HCl (Atarax) 25 Mg Tab, 25 MG PO TID, #15 TAB Prov:KHUSHI IBANEZ MD 04/02/23 Acetaminophen (Tylenol) 500 Mg Tab, 500 MG PO Q6HPRN PRN for fever for 5 Days, #30 TAB Prov:KIKI MCKINNEY MD 12/24/21 Oseltamivir Phosphate (Tamiflu) 75 Mg Cap, 75 MG PO BID for 5 Days, #10 CAP Prov:KIKI MCKINNEY MD 12/24/21 Past Medical History Past Medical History: Diabetes-Type II, High Cholesterol, Hypertension Surgical History: None Social History: Negative RN Note Reviewed/Agreed w/PFSH: Yes Review of System Dictation CONSTITUTIONAL: NEGATIVE EXCEPT FOR HPI HEAD/FACE: NEGATIVE EXCEPT FOR HPI EENT: NEGATIVE EXCEPT FOR HPI ON BODY SENSATION LEFT EYE RESPIRATORY: NEGATIVE EXCEPT FOR HPI GASTROINTESTINAL/ABDOMINAL: NEGATIVE EXCEPT FOR HPI GENITOURINARY: NEGATIVE EXCEPT FOR HPI MUSCULOSKELETAL: NEGATIVE EXCEPT FOR HPI INTEGUMENTARY: NEGATIVE EXCEPT FOR HPI NEUROLOGICAL/PSYCH: NEGATIVE EXCEPT FOR HPI HEMATOLOGIC/LYMPHATIC: NEGATIVE EXCEPT FOR HPI ALL SYSTEMS NEGATIVE, EXCEPT NOTED ABOVE. 13 POINT REVIEW OF SYSTEMS ASSESSED AND ALL NEGATIVE EXCEPT FOR ABOVE. Initial Vital Sign VS Vital Signs Date Time Temp Pulse Resp B/P (MAP) Pulse Ox O2 Delivery O2 Flow Rate FiO2 01/29/25 15:22 98.1 87 18 194/105 97 Room Air 01/29/25 16:17 0 21 Physical Exam Dictation VITAL SIGNS REVIEWED GENERAL APPEARANCE: ALERT, ORIENTED X 3, MILD ACUTE DISTRESS, WELL DEVELOPED, NOURISHED. MORBID OBESITY HEAD AND FACE: NON-TRAUMATIC. EYES: PERRL, PINK CONJUNCTIVAS, EYELID NO TRAUMA, ANTERIOR CHAMBER WITH ARCUS SENILIS. NO VISUAL FIELD CUTS EOMS INTACT EARS: PINNAS INTACT AND NO SIGNS OF TRAUMA OR ERYTHEMA EAR CANALS CLEAR AND NO DISCHARGE TM NO ERYTHEMA NOSE: NO DISCHARGE, NO BLEEDING. OROPHARYNX: MOUTH NORMAL, TONGUE PINK, PHARYNX CLEAR,NO ERYTHEMA, TONSILS NO EXUDATES, NO ABSCESSES NOTED, MUCOUS MEMBRANE MOIST NECK: SUPPLE, NON-TENDER, NO THYROMEGALY, NO MASSES, NO JVD, NO BRUITS BREAST:DEFERRED CHEST:NO TENDERNESS, NO CREPITUS, NO PARADOXICAL MOVEMENT, NO RETRACTIONS LUNGS:CLEAR, WELL-VENTILATED, SYMMETRIC, NO RALES, NO WHEEZING, NO RHONCHI, NO STRIDOR, GOOD BREATH SOUNDS BILATERALLY HEART: REGULAR RATE, REGULAR RHYTHM, NO MURMUR, NO GALLOPS VASCULAR: NO PERIPHERAL EDEMA, ABDOMEN: SOFT, POSITIVE BOWEL SOUNDS, NONDISTENDED, NO GUARDING, NONTENDER, NO REBOUND, NO MASSES NO HEPATOMEGALY, NO SPLENOMEGALY, NO TORRES'S SIGN, NO HERNIAS. RECTAL: DEFERRED GENITAL: DEFERRED NEUROLOGICAL: NORMAL SPEECH, MOTOR FUNCTION INTACT, SENSORY FUNCTION INTACT MUSCULOSKELETAL: NECK NONTENDER, FULL RANGE OF MOTION, BACK NONTENDER, FULL RANGE OF MOTION, EXTREMITIES: NONTENDER, FULL RANGE OF MOTION SKIN: COLOR PINK, DRY, NO TURGOR, NO RASH, NO LACERATIONS, NO ABRASIONS, NO CONTUSIONS. LYMPHATIC: DEFERRED Results (Laboratory/Radiology) Labs Reviewed?: Yes ED Course ED Course Orders Procedure Category Date Status Time Clonidine Hcl 0.2 Mg PHA 01/29/25 Complete Tablet (Catapres 0. 16:00 Tetracaine Hcl PHA 01/29/25 Complete (Pontocaine 0.5% 16:00 Fluorescein Sodium PHA 01/29/25 Complete (Qwywd-U-Jtglx At) 16:00 Acetaminophen 500mg PHA 01/29/25 Complete Tab (Tylenol 500mg T 16:00 Visual Acuity Test CPOE 01/29/25 Transmitted (Er) 15:34 Current Medications Medications (Trade) Dose Ordered Sig/Aaron Route PRN Reason Start Time Stop Time Status Last Admin Dose Admin Acetaminophen (TYLenol 500MG TAB) 1,000 mg ONCE ONCE PO 01/29/25 16:00 01/29/25 16:01 DC Clonidine HCl (CATApres 0.2 MG TAB) 0.2 mg ONCE ONCE PO 01/29/25 16:00 01/29/25 16:01 DC Fluorescein Sodium (Wmaqy-G-Fnizn At) 1 strip ONCE ONCE OP 01/29/25 16:00 01/29/25 16:01 DC Tetracaine HCl (Pontocaine 0.5% Ophth Soln) 2 DROP ONCE ONCE OP 01/29/25 16:00 01/29/25 16:01 DC Vital Signs Date Time Temp Pulse Resp B/P (MAP) Pulse Ox O2 Delivery O2 Flow Rate FiO2 01/29/25 16:17 98.1 88 20 174/100 97 Room Air* 0 21 01/29/25 15:22 98.1 87 18 194/105 97 Room Air 1630/BLOOD PRESSURE 174/100 AFTER CLONIDINE. HE WILL BE DISCHARGED HOME WITH CLONIDINE 0.1 B.I.D.. IN ADDITION HE WILL BE REFERRED TO [facility] TO FOLLOW UP TOMORROW FOR MANAGEMENT OF HIS LEFT EYE. 1640/VISUAL ACUITY TEST UNCORRECTED 20/20 RIGHT 20/50 LEFT 20/20 BILATERAL Medical Decision Making MDM MEDICAL DECISION-MAKING BASED ON VISUAL ACUITY TEST AND I EXAM OF LEFT EYE. OPTIC NERVE INTACT, NO HEMORRHAGING NO FOREIGN BODY NO LACERATIONS NO ABRASIONS. PATIENT GIVEN CLONIDINE 0.2 FOR HYPERTENSION REPEAT BLOOD PRESSURE 174/100 PATIENT IS STRONGLY ADVISED TO FOLLOW UP WITH [facility] TOMORROW ADDITIONALLY TO MAINTAIN HIS DIABETIC MEDICATIONS AND BEGIN CLONIDINE DIRECTED AND SEE HIS FAMILY DOCTOR FOR FOLLOW UP Procedure Procedure Dictation: 1625/PROCEDURE EXPLAINED TO PATIENT HE AGREED TO PROCEED TWO DROPS TETRACAINE TO LEFT EYE FLUORESCEIN STAIN APPLIED TO EYE. I WAS EXAMINED WITH UPPER LID EVERTED. NO FOREIGN BODY, NO ABRASION NO LACERATION. DX & DISP Disposition: Discharge Departure Impression: Primary Impression: Uncontrolled hypertension Additional Impressions: Foreign body sensation, left eye, Obesity, Medically noncompliant Condition: Stable Scripts Clonidine HCl (Clonidine HCl) 0.2 Mg Tablet 1 TAB PO BID for 30 Days, #60 TAB 0 Refills Prov: MARIE GARCIA MAGAZINE KEEPER 01/29/25 Additional Instructions: FOLLOW-UP WITH PRIMARY CARE PROVIDER IN 1 TO 2 DAYS. TAKE MEDICATIONS DIRECTED HERE IN THE EMERGENCY ROOM. OKAY TO CONTINUE HOME MEDICATIONS UNLESS OTHERWISE DISCUSSED DURING YOUR VISIT IN THE EMERGENCY ROOM TODAY. RETURN TO YOUR NEAREST EMERGENCY ROOM IF SYMPTOMS WORSEN OR IF THERE IS NO IMPROVEMENT. CALL 911 IF YOU NEED IMMEDIATE ASSISTANCE. TAKE TYLENOL OR MOTRIN [id number] NEEDED AND IF NO CONTRAINDICATIONS ARE PRESENT. INCREASE ORAL HYDRATION. A WOUND CULTURE OR URINE CULTURE WAS ORDERED HERE IN THE EMERGENCY ROOM DEPARTMENT PLEASE FOLLOW-UP WITH PRIMARY CARE PROVIDER AND ADVISE THEM TO GET REPEAT PORTS FROM OUR FACILITY. IF YOU HAD ANY PB WRAP/SPLINTS THAT WERE APPLIED HERE, PLEASE DO NOT REMOVE THEM UNTIL YOU SEE YOUR PRIMARY CARE OR SPECIALTY. CONTINUE YOUR DIABETIC MEDICATIONS HOME FROM YOUR PRIMARY CARE DOCTOR. CALL [facility], LOOK IN THE YELLOW PAGES FOR A NUMBER IN [facility] AND SEE THEM TOMORROW. CALL FOR AN APPOINTMENT. TAKE CLONIDINE DIRECTED FOR YOUR BLOOD PRESSURE. Referrals: SELF,REFERRAL (PCP) I have reviewed the case, and I agree with, Diagnosis and Plan MARIE GARCIA NP Jan 29, 2025 15:37
[2025-01-29] MEDS ORDERED: FLUORESCEIN SODIUM 1 STRIP STRIP OP ONE (16:00)
[2025-01-29] MEDS ORDERED: TETRACAINE HCL 0.5% 4 ML OPHTH SOLN OP ONE (16:00)
[2025-01-29 16:17] VITALS: BP 174/100; PULSE 88; RESP 20; TEMP 98.1; O2SAT 97
[2025-01-29] MEDS ORDERED: CLON0.2T PO (16:42)
== END 2025-01-29 17:02 | disposition home or self-care (01) ==
LOC: EDH 15:20
DX: I10 Essential (primary) hypertension (principal); E11.9 Type 2 diabetes mellitus without complications; E66.9 Obesity, unspecified; E78.00 Pure hypercholesterolemia, unspecified; Z91.199 Patient's noncompliance with other medical treatment and regimen due to unspecified reason; Z68.41 Body mass index [BMI] 40.0-44.9, adult
CPT/HCPCS: 99283

== ENCOUNTER 2025-04-22 15:51 | Emergency (ER) | payer SELFPAY ==
[~2025-04-22] VITALS: Ht 180.3 cm; Wt 144.2 kg
[~2025-04-22 15:51] MED LIST changes: +CLON0.2T PO
[2025-04-22] MEDS: MAG/ALUM/SIMETH 30 ML UDCUP PO ONE (16:22)
[2025-04-22] MEDS: LIDOCAINE HCL 2% VISCOUS 15 ML UDCUP PO ONE (16:22)
[2025-04-22] MEDS: 0.9%NACL 1000ML 1,000 ML IV ONE (16:25)
[2025-04-22 16:44] LABS: IMMATURE GRANULOCYTE ABSOLUTE 0.03 K/uL (0-1); NUCLEATED RED BLOOD CELLS 0.0 % (0.0-0.19); PLATELET COUNT (AUTO) 221 K/uL (130-400); RED BLOOD CELL COUNT(AUTO) 6.65 MIL/uL (4.50-6.20); RED CELL DISTRIBUTION WIDTH 14.6 % (11.0-15.5); WHITE BLOOD COUNT (AUTO) 6.8 K/uL (4.8-10.8)
[2025-04-22 16:58] LABS: ASPARTATE AMINOTRANSFERASE 28.0 U/L (10-37); CREATININE 1.1 mg/dL (0.5-1.3); GLOMERULAR FILTR. RATE CALC 88.0 mL/min (>90); GLUCOSE,RANDOM 302.0 mg/dL (70-105); SODIUM SERUM 133.0 mmol/L (136-145); TOTAL PROTEIN, SERUM 6.8 g/dL (6.0-8.3); UREA NITROGEN, BLOOD 16.0 mg/dL (7-18)
[2025-04-22 17:15] VITALS: BP 162/80; PULSE 98; RESP 14; TEMP 98.2; O2SAT 99
--- NOTE | 2025-04-22 17:29 | NUR ---
REPORT ENDORSED TO ME BY JANETT RN
[2025-04-22 17:34] LABS: APPEARANCE,URINE CLEAR (CLEAR); GLUCOSE, URINE (UA) >=1000 mg/dL (NEGATIVE); LEUKOCYTE ESTERASE ,URINE NEGATIVE Leu/uL (NEGATIVE); NITRATE,URINE NEGATIVE (NEGATIVE); OCCULT BLOOD,URINE NEGATIVE (NEGATIVE)
[2025-04-22 17:39] LABS: ADD UA MICROSCOPIC YES
[2025-04-22 17:41] LABS: AMPHET/METH SCREEN,URINE NEGATIVE (NEGATIVE); BARBITURATE SCREEN, URINE NEGATIVE (NEGATIVE); CANNABINOID SCREEN,URINE NEGATIVE (NEGATIVE); COCAINE SCREEN,URINE NEGATIVE (NEGATIVE)
[2025-04-22] MEDS ORDERED: PANT40TA55 PO (17:46)
--- NOTE | 2025-04-22 17:46 | ERN ---
General Chief Complaint: Abdominal Pain Stated Complaint: ABD PAIN Time Seen by MD: 15:55 Source: patient History of Present Illness Initial Comments PATIENT IS A 40-YEAR-OLD MALE COMING IN COMPLAINING OF ABDOMINAL DISCOMFORT FOR A COUPLE OF WEEKS. STATES HE HAS A VAGUE ABDOMINAL DISCOMFORT HAS NOT BEEN SEEN BY HIS PCP DUE TO LACK OF HAVING ONE. Allergies: Coded Allergies: No Known Drug Allergies (Unverified Allergy, Unknown, 01/31/19) Home Meds Active Scripts Clonidine HCl (Clonidine HCl) 0.2 Mg Tablet, 1 TAB PO BID for 30 Days, #60 TAB 0 Refills Prov:MARIE GARCIA 01/29/25 Hydroxyzine HCl (Atarax) 25 Mg Tab, 25 MG PO TID, #15 TAB Prov:KHUSHI IBANEZ MD 04/02/23 Acetaminophen (Tylenol) 500 Mg Tab, 500 MG PO Q6HPRN PRN for fever for 5 Days, #30 TAB Prov:KIKI MCKINNEY MD 12/24/21 Oseltamivir Phosphate (Tamiflu) 75 Mg Cap, 75 MG PO BID for 5 Days, #10 CAP Prov:KIKI MCKINNEY MD 12/24/21 Past Medical History Past Medical History: Diabetes-Type II, High Cholesterol, Hypertension Past Surgical History: None Social History Social History: Negative ROS Dictation CONSTITUTIONAL: NO CHILLS, NO FEVER, NO WEAKNESS, NO DIAPHORESIS, NO MALAISE. HEAD/FACE: NO SIGNS OF TRAUMA. EENT: NO EYE PAIN, NO BLURRED VISION, NO TEARING, NO DOUBLE VISION, NO EAR PAIN, NO EAR DISCHARGE, NO NOSE PAIN, NO NASAL CONGESTION, NO THROAT PAIN, NO THROAT SWELLING, NO MOUTH PAIN. RESPIRATORY: NO COUGH, NO ORTHOPNEA, NO SOB, NO STRIDOR, NO WHEEZING. CARDIOVASCULAR: NO CHEST PAIN, NO EDEMA, NO PALPITATIONS, NO SYNCOPE. GASTROINTESTINAL/ABDOMINAL: ABDOMINAL PAIN, NO CONSTIPATION, NO DIARRHEA, NO NAUSEA, NO VOMITING. GENITOURINARY: NO ABNORMAL DISCHARGE, NO DYSURIA, NO FREQUENT URINATION, NO HEMATURIA. NO COMPLAINTS OF PAIN IN THE GENITALS. MUSCULOSKELETAL: NO BACK PAIN, NO GOUT, NO JOINT PAIN, NO JOINT SWELLING, NO MUSCLE PAIN, NO MUSCLE STIFFNESS, NO NECK PAIN. INTEGUMENTARY: NO CHANGE IN COLOR, NO CHANGE IN HAIR/NAILS, NO DRYNESS, NO LESION, NO LUMPS, NO RASH. NEUROLOGICAL/PSYCH: NO ANXIETY, NOT DEPRESSED, NO EMOTIONAL PROBLEM, NO HEADACHE, NO NUMBNESS, NO PRE-EXISTING DEFICIT, NO HISTORY OF SEIZURES, NO TREMORS, NO WEAKNESS. HEMATOLOGIC/LYMPHATIC: NOT ANEMIC, NO HISTORY OF BLOOD CLOTS, NO APPARENT BLEEDING, NO BRUISING, GLANDS NOT SWOLLEN. ALL SYSTEMS NEGATIVE, EXCEPT NOTED. Results Laboratory and Microbiology Lab and Micro Result Laboratory Tests Test 04/22/25 16:20 04/22/25 17:20 White Blood Count 6.8 K/uL (4.8-10.8) Red Blood Count 6.65 MIL/uL (4.50-6.20) H Hemoglobin 16.9 g/dL (14.0-18.0) Hematocrit 51.3 % (42-54) Mean Corpuscular Volume 77.1 fL (79-99) L Mean Corpuscular Hemoglobin 25.4 pg (27.0-33.0) L Mean Corpuscular Hemoglobin Concent 32.9 g/dL (32.0-36.0) Red Cell Distribution Width 14.6 % (11.0-15.5) Platelet Count 221 K/uL (130-400) Mean Platelet Volume 11.7 fL (7.5-10.5) H Immature Granulocyte % (Auto) 0.4 % (0-1) Neutrophils (%) (Auto) 61.8 % (40.0-77.0) Lymphocytes (%) (Auto) 25.7 % (21.0-51.0) Monocytes (%) (Auto) 8.0 % (3.0-13.0) Eosinophils (%) (Auto) 3.4 % (0.0-8.0) Basophils (%) (Auto) 0.7 % (0.0-5.0) Neutrophils # (Auto) 4.2 K/uL (1.8-7.7) Lymphocytes # (Auto) 1.7 K/uL (1.0-4.8) Monocytes # (Auto) 0.5 K/uL (0.1-1.0) Eosinophils # (Auto) 0.23 K/uL (0.00-0.70) Basophils # (Auto) 0.05 K/uL (0.00-0.20) Absolute Immature Granulocyte (auto 0.03 K/uL (0-1) Nucleated Red Blood Cells 0.0 % (0.0-0.19) Sodium Level 133 mmol/L (136-145) L Potassium Level 4.3 mmol/L (3.5-5.1) Chloride Level 98 mmol/L (101-111) L Carbon Dioxide Level 28 mmol/L (21-32) Blood Urea Nitrogen 16 mg/dL (7-18) Creatinine 1.1 mg/dL (0.5-1.3) Glomerular Filtration Rate Calc 88 mL/min (>90) Random Glucose 302 mg/dL (70-105) H Total Calcium 8.5 mg/dL (8.5-10.1) Total Bilirubin 0.6 mg/dL (0.2-1.0) Aspartate Amino Transf (AST/SGOT) 28 U/L (10-37) Alanine Aminotransferase (ALT/SGPT) 54 U/L (12-78) Alkaline Phosphatase 86 U/L (50-136) Total Protein 6.8 g/dL (6.0-8.3) Albumin 3.3 g/dL (3.5-5.0) L Lipase 42 U/L (16-77) Urine Color YELLOW (YELLOW) Urine Appearance CLEAR (CLEAR) Urine pH 6.5 (5.0-8.0) Urine Specific [place] 1.010 (1.001-1.031) Urine Protein NEGATIVE mg/dL (NEGATIVE) Urine Glucose (UA) >=1000 mg/dL (NEGATIVE) H Urine Ketones NEGATIVE mg/dL (NEGATIVE) Urine Occult Blood NEGATIVE (NEGATIVE) Urine Nitrate NEGATIVE (NEGATIVE) Urine Bilirubin NEGATIVE mg/dL (NEGATIVE) Urine Urobilinogen 1.0 mg/dL (0.2-1.0) Urine Leukocyte Esterase NEGATIVE Jaswant/uL Urine Opiates Screen NEGATIVE (NEGATIVE) Urine Barbiturates Screen NEGATIVE (NEGATIVE) Urine Phencyclidine Screen NEGATIVE (NEGATIVE) Urine Amphetamines Screen NEGATIVE (NEGATIVE) Urine Benzodiazepines Screen NEGATIVE (NEGATIVE) Urine Cocaine Screen NEGATIVE (NEGATIVE) Urine Marijuana (THC) Screen NEGATIVE (NEGATIVE) Labs Reviewed?: Yes MDM MDM: DIFFERENTIAL DIAGNOSIS: DIABETES MELLITUS HYPERGLYCEMIA GASTROPARESIS, GASTRITIS, GERD, RATIONALE: TESTS CONSIDERED AND ORDERED SECONDARY TO SHARED DECISION MAKING INCLUDE: PREVIOUS OUTSIDE RECORDS REVIEWED: OLD ER VISITS. RISK OF COMPLICATION AND/OR MORBIDITY OR MORTALITY OF PATIENT MANAGEMENT: NONE MEDICATIONS-PER MEDICATION RECONCILIATION NEED FOR HOSPITALIZATION: PATIENT DOES NOT MEET CRITERIA FOR HOSPITALIZATION. NEED FOR EMERGENCY MAJOR/MINOR SURGERY: NO PATIENT IS A 40-YEAR-OLD MALE ABDOMINAL DISCOMFORT. PATIENT STATES THAT THIS HAS BEEN ONGOING FOR SEVERAL WEEKS. PATIENT IS A DIABETIC BUT STATES HE HAS NOT FOLLOWED UP WITH THE PCP BECAUSE HE DOES NOT HAS BEEN. LABORATORY WORKUP WITH A NORMAL LIMITS MILD DEHYDRATION PATIENT WAS HYDRATED WITH IV FLUIDS GLUCOSE WAS ELEVATED HE STATES HE IS GOING TO TAKE HIS INSULIN WHEN HE GETS HOME. PATIENT WILL BE DISCHARGED IN STABLE CONDITION WITH A DIAGNOSIS OF GASTRITIS AND GERD. ED Course Orders Procedure Category Date Status Time Urinalysis Profile LAB 04/22/25 In Process 16:01 0.9%Nacl 1000ml (Ns PHA 04/22/25 Complete 1000ml) 16:30 Lidocaine Hcl 2% PHA 04/22/25 Complete Viscous (Lidocaine Hcl 16:30 Mag/Alum/Simeth 30ml PHA 04/22/25 Complete (Maalox Plus 30ml) 16:30 Drug Screen Urine LAB 04/22/25 In Process 16:01 Comprehensive LAB 04/22/25 Complete Metabolic Panel 16:31 Lipase LAB 04/22/25 Complete 16:31 Cbc With Differential LAB 04/22/25 Complete 16:32 Current Medications Medications (Trade) Dose Ordered Sig/Aaron Route PRN Reason Start Time Stop Time Status Last Admin Dose Admin Al Hydroxide/Mg Hydroxide (MAALox PLUS 30ML) 30 ml ONCE ONCE PO 04/22/25 16:30 04/22/25 16:31 DC 04/22/25 16:22 Lidocaine HCl (Lidocaine HCl 2% Viscous) 10 ml ONCE ONCE PO 04/22/25 16:30 04/22/25 16:31 DC 04/22/25 16:22 Sodium Chloride 1,000 ml @ 0 mls/hr ONCE ONCE IV 04/22/25 16:30 04/22/25 16:31 DC 04/22/25 16:25 Vital Signs Date Time Temp Pulse Resp B/P (MAP) Pulse Ox O2 Delivery O2 Flow Rate FiO2 04/22/25 17:15 98.2 98 14 162/80 99 Room Air* 0 21 04/22/25 16:27 98.2 104 20 147/88 98 Room Air* 0 21 04/22/25 15:54 99.0 111 18 157/100 97 DX & DISP Disposition: Discharge Departure Impression: Primary Impression: Diabetes mellitus with hyperglycemia Additional Impression: Gastritis Condition: Stable Scripts Pantoprazole Sodium (Protonix) 40 Mg Ectab 1 TAB PO DAILY for 30 Days, #30 TAB 0 Refills Prov: KIKI MCKINNEY MD 04/22/25 Additional Instructions: FOLLOW-UP WITH PRIMARY CARE PROVIDER IN 1 TO 2 DAYS. TAKE MEDICATIONS DIRECTED HERE IN THE EMERGENCY ROOM. OKAY TO CONTINUE HOME MEDICATIONS UNLESS OTHERWISE DISCUSSED DURING YOUR VISIT IN THE EMERGENCY ROOM TODAY. RETURN TO YOUR NEAREST EMERGENCY ROOM IF SYMPTOMS WORSEN OR IF THERE IS NO IMPROVEMENT. CALL 911 IF YOU NEED IMMEDIATE ASSISTANCE. TAKE TYLENOL [id number] NEEDED AND IF NO CONTRAINDICATIONS ARE PRESENT. INCREASE ORAL HYDRATION. A WOUND CULTURE OR URINE CULTURE WAS ORDERED HERE IN THE EMERGENCY ROOM DEPARTMENT PLEASE FOLLOW-UP WITH PRIMARY CARE PROVIDER AND ADVISE THEM TO GET REPORTS FROM OUR FACILITY. IF YOU HAD ANY PB WRAP/SPLINTS THAT WERE APPLIED HERE, PLEASE DO NOT REMOVE THEM UNTIL YOU SEE YOUR PRIMARY CARE OR SPECIALTY. REFERRALS: Referrals: SELF,REFERRAL (PCP) CARMEN SIU MD Time of Disposition: 17:45 KIKI MCKINNEY MD Apr 22, 2025 17:46
[2025-04-22 17:54] LABS: CALCIUM OXALATE CRYSTALS,UR Rare /LPF (None Seen)
== END 2025-04-22 17:49 | disposition home or self-care (01) ==
LOC: EDH 15:51
DX: K29.70 Gastritis, unspecified, without bleeding (principal); E11.65 Type 2 diabetes mellitus with hyperglycemia; E78.00 Pure hypercholesterolemia, unspecified; I10 Essential (primary) hypertension; Z79.899 Other long term (current) drug therapy
CPT/HCPCS: 99283; 96360; 80053; 80305; 83690; 85025; 36415; 81001; J7030

== ENCOUNTER 2025-04-30 23:40 | Emergency (ER) | payer SELFPAY ==
[~2025-04-30] VITALS: Ht 180.3 cm; Wt 143.8 kg
[2025-05-01 00:29] LABS: IMMATURE GRANULOCYTE ABSOLUTE 0.04 K/uL (0-1); NUCLEATED RED BLOOD CELLS 0.0 % (0.0-0.19); PLATELET COUNT (AUTO) 202 K/uL (130-400); RED BLOOD CELL COUNT(AUTO) 6.71 MIL/uL (4.50-6.20); RED CELL DISTRIBUTION WIDTH 15.3 % (11.0-15.5); WHITE BLOOD COUNT (AUTO) 8.4 K/uL (4.8-10.8)
[2025-05-01 00:42] LABS: CREATININE 1.0 mg/dL (0.5-1.3); GLOMERULAR FILTR. RATE CALC 99.0 mL/min (>90); GLUCOSE,RANDOM 132.0 mg/dL (70-105); SODIUM SERUM 137.0 mmol/L (136-145); UREA NITROGEN, BLOOD 18.0 mg/dL (7-18)
[2025-05-01 00:44] LABS: ASPARTATE AMINOTRANSFERASE 28.0 U/L (10-37); TOTAL PROTEIN, SERUM 7.3 g/dL (6.0-8.3)
[2025-05-01 00:47] LABS: AMPHET/METH SCREEN,URINE NEGATIVE (NEGATIVE); BARBITURATE SCREEN, URINE NEGATIVE (NEGATIVE); CANNABINOID SCREEN,URINE NEGATIVE (NEGATIVE); COCAINE SCREEN,URINE NEGATIVE (NEGATIVE)
--- NOTE | 2025-05-01 00:58 | ERN ---
General Chief Complaint: Chest Pain Stated Complaint: CHEST PAIN Time Seen by MD: 23:44 History of Present Illness Initial Comments 40-year-old male history of hypertension here for evaluation of chest pain. Patient states that he has been having intermittent chest pain over the past few days. He also believes something is wrong with the his bilateral lower extremities as he has been experiencing numbness and tingling to areas hips. Of note patient recently had a friend who this past week. Allergies: Coded Allergies: No Known Drug Allergies (Unverified Allergy, Unknown, 01/31/19) Home Meds Active Scripts Pantoprazole Sodium (Protonix) 40 Mg Ectab, 1 TAB PO DAILY for 30 Days, #30 TAB 0 Refills Prov:KIKI MCKINNEY MD 04/22/25 Clonidine HCl (Clonidine HCl) 0.2 Mg Tablet, 1 TAB PO BID for 30 Days, #60 TAB 0 Refills Prov:MARIE GARCIA 01/29/25 Hydroxyzine HCl (Atarax) 25 Mg Tab, 25 MG PO TID, #15 TAB Prov:KHUSHI IBANEZ MD 04/02/23 Acetaminophen (Tylenol) 500 Mg Tab, 500 MG PO Q6HPRN PRN for fever for 5 Days, #30 TAB Prov:KIKI MCKINNEY MD 12/24/21 Oseltamivir Phosphate (Tamiflu) 75 Mg Cap, 75 MG PO BID for 5 Days, #10 CAP Prov:KIKI MCKINNEY MD 12/24/21 Past Medical History Past Medical History: Diabetes-Type II, Hypertension Past Surgical History: Other Surgical History Other: RIGHT ANKLE SX FOR BONE SPUR Social History Social History: Negative Physical Exam General Appearance: (+) no apparent distress, (+) obese Orientation: (+) alert, (+) oriented x 3 Eye: bilateral eye normal inspection, bilateral eye PERRL, bilateral eye EOMI Ear, Nose, Throat: (+) hearing grossly normal, (+) normal ENT inspection, (+) moist mucous membraine Neck: (+) normal inspection, (+) supple Respiratory: (+) chest non-tender, (+) lungs clear Heart: (+) regular; (-) murmur Extremities: (+) normal range of motion, (+) non-tender, (+) normal inspection Results Laboratory and Microbiology Lab and Micro Result Laboratory Tests Test 04/30/25 00:23 04/30/25 23:59 Urine Opiates Screen NEGATIVE (NEGATIVE) Urine Barbiturates Screen NEGATIVE (NEGATIVE) Urine Phencyclidine Screen NEGATIVE (NEGATIVE) Urine Amphetamines Screen NEGATIVE (NEGATIVE) Urine Benzodiazepines Screen NEGATIVE (NEGATIVE) Urine Cocaine Screen NEGATIVE (NEGATIVE) Urine Marijuana (THC) Screen NEGATIVE (NEGATIVE) White Blood Count 8.4 K/uL (4.8-10.8) Red Blood Count 6.71 MIL/uL (4.50-6.20) H Hemoglobin 17.2 g/dL (14.0-18.0) Hematocrit 53.5 % (42-54) Mean Corpuscular Volume 79.7 fL (79-99) Mean Corpuscular Hemoglobin 25.6 pg (27.0-33.0) L Mean Corpuscular Hemoglobin Concent 32.1 g/dL (32.0-36.0) Red Cell Distribution Width 15.3 % (11.0-15.5) Platelet Count 202 K/uL (130-400) Mean Platelet Volume 10.5 fL (7.5-10.5) Immature Granulocyte % (Auto) 0.5 % (0-1) Neutrophils (%) (Auto) 58.9 % (40.0-77.0) Lymphocytes (%) (Auto) 28.8 % (21.0-51.0) Monocytes (%) (Auto) 8.6 % (3.0-13.0) Eosinophils (%) (Auto) 2.6 % (0.0-8.0) Basophils (%) (Auto) 0.6 % (0.0-5.0) Neutrophils # (Auto) 5.0 K/uL (1.8-7.7) Lymphocytes # (Auto) 2.4 K/uL (1.0-4.8) Monocytes # (Auto) 0.7 K/uL (0.1-1.0) Eosinophils # (Auto) 0.22 K/uL (0.00-0.70) Basophils # (Auto) 0.05 K/uL (0.00-0.20) Absolute Immature Granulocyte (auto 0.04 K/uL (0-1) Nucleated Red Blood Cells 0.0 % (0.0-0.19) Sodium Level 137 mmol/L (136-145) Potassium Level 3.8 mmol/L (3.5-5.1) Chloride Level 100 mmol/L (101-111) L Carbon Dioxide Level 27 mmol/L (21-32) Blood Urea Nitrogen 18 mg/dL (7-18) Creatinine 1.0 mg/dL (0.5-1.3) Glomerular Filtration Rate Calc 99 mL/min (>90) Random Glucose 132 mg/dL (70-105) H Total Calcium 8.9 mg/dL (8.5-10.1) Total Bilirubin 0.6 mg/dL (0.2-1.0) Direct Bilirubin 0.2 mg/dL (0.0-0.3) Aspartate Amino Transf (AST/SGOT) 28 U/L (10-37) Alanine Aminotransferase (ALT/SGPT) 59 U/L (12-78) Alkaline Phosphatase 77 U/L (50-136) Troponin I High Sensitivity 22 ng/L (4-75) Total Protein 7.3 g/dL (6.0-8.3) Albumin 3.6 g/dL (3.5-5.0) MDM 40-year-old male here for multiple complaints. I believe that this is a conversion reaction secondary to a recent passing of his friend. He seems to be over focusing on his current health and we would like multiple things done to determine his overall health status as he is anxious about his health. Nevertheless cardiac workup we will be performed. He will likely benefit from outpatient follow up with the Psychiatry or counseling. Likely discharge home ED Course Orders Procedure Category Date Status Time 12 Lead Ekg Tracing- EKG 04/30/25 Logged Technical 23:41 Basic Metabolic Panel LAB 04/30/25 Complete 23:44 Cbc With Differential LAB 04/30/25 Complete 23:44 Drug Screen Urine LAB 04/30/25 Complete 23:44 Hepatic Function Panel LAB 04/30/25 Complete 23:44 Troponin I High LAB 04/30/25 Complete Sensitivity 23:44 Chest 1vw RAD 04/30/25 Taken 23:44 Lorazepam 1 Mg PHA 05/01/25 Complete (Ativan) 01:00 Lorazepam 1 Mg PHA 05/01/25 Complete (Ativan) 00:41 Current Medications Medications (Trade) Dose Ordered Sig/Aaron Route PRN Reason Start Time Stop Time Status Last Admin Dose Admin Lorazepam (AtiVAN) 1 mg ONCE ONCE PO 05/01/25 01:00 05/01/25 01:01 DC 05/01/25 00:58 Lorazepam (AtiVAN) 1 mg STK-MED ONCE .ROUTE 05/01/25 00:41 05/01/25 00:41 DC Vital Signs Date Time Temp Pulse Resp B/P (MAP) Pulse Ox O2 Delivery O2 Flow Rate FiO2 05/01/25 00:27 98.6 103 22 201/90 99 Room Air* 0 21 04/30/25 23:42 98.4 103 18 197/105 100 Room Air 0 Patient re-evaluated. He is likely having a conversion reaction secondary to loss of his friend recently. He is very tearful in the emergency room and is crying but redirectable. I advised him to follow up with the primary care doctor. He will likely benefit from outpatient therapy. We will discharge home at this time. HEART Score Response (Comments) Value History: Low suspicion (0) 0 EKG: Normal 0 Age: < 45yrs (0) 0 Risk Factors: No known risk factors (0) 0 Initial Troponin: Normal limit (0) 0 HEART Score Risk: Low Risk for MACE (1-3) Total 0 DX & DISP Disposition: Discharge Departure Impression: Primary Impression: Anxiety Additional Impression: Bereavement due to loss of friend Condition: Stable Referrals: SELF,REFERRAL (PCP) TING BORGES MD May 01, 2025 00:58
--- NOTE | 2025-05-01 01:48 | HMCIMG ---
EXAM: CR Chest, 1 View. CLINICAL HISTORY: cp COMPARISON: None provided. FINDINGS: LUNGS: There is no mass, infiltrate, or acute pulmonary abnormality. PLEURAL SPACES: No pleural effusion or pneumothorax. MEDIASTINUM: Cardiac size and mediastinal contours are within normal limits. BONES: No aggressively appearing osseous lesion was seen. IMPRESSION: No acute cardiopulmonary pathology is evident. /[place]
[2025-05-01 03:06] VITALS: BP 168/98; PULSE 88; RESP 22; TEMP 98.6; O2SAT 99
--- NOTE | 2025-05-01 10:31 | EKG ---
[facility] Test Date: 2025-04-30 Test Time: 23:37:48 Pat Name: JEFFERSON AYOUB Department: ED Room: Gender: M Rn Care Manager: [facility] : 1985 Requested By: TING BORGES Order Number: [id number] Reading MD: Cameron Rahman Measurements Intervals Elizabeth Rate: 101 P: 40 CT: 163 QRS: 69 QRSD: 80 T: 38 QT: 338 QTc: 438 Interpretive Statements Sinus tachycardia Compared to ECG 04/02/2023 11:28:31 Sinus rhythm no longer present ST (T wave) deviation no longer present Electronically Signed On 05-01-2025 13:16:39 [employer]OP ROLLS OPERATOR by Cameron Rahman Please click the below link to view image of tracing.
== END 2025-05-01 03:50 | disposition home or self-care (01) ==
LOC: EDH 23:40
DX: F41.9 Anxiety disorder, unspecified (principal); E11.9 Type 2 diabetes mellitus without complications; I10 Essential (primary) hypertension; Z63.4 Disappearance and death of family member; Z79.899 Other long term (current) drug therapy
CPT/HCPCS: 36415; 71045; 80048; 80076; 80305; 84484; 85025; 93005; 99285

== ENCOUNTER 2025-05-21 00:30 | Emergency (ER) | payer SELFPAY ==
[~2025-05-21] VITALS: Ht 180.3 cm; Wt 139.7 kg
[~2025-05-21 00:30] MED LIST changes: +PANT40TA55 PO
[2025-05-21] MEDS: MAGNESIUM CITRATE 296 ML SOLUTION PO ONE (01:03)
[2025-05-21] MEDS: LACTULOSE 20 GM/30 ML UDCUP PO ONE (01:03)
[2025-05-21] MEDS: 0.9%NACL 1000ML 1,000 ML IV ONE (01:03)
[2025-05-21 01:20] LABS: IMMATURE GRANULOCYTE ABSOLUTE 0.02 K/uL (0-1); NUCLEATED RED BLOOD CELLS 0.0 % (0.0-0.19); PLATELET COUNT (AUTO) 212 K/uL (130-400); RED BLOOD CELL COUNT(AUTO) 6.33 MIL/uL (4.50-6.20); RED CELL DISTRIBUTION WIDTH 15.9 % (11.0-15.5); WHITE BLOOD COUNT (AUTO) 7.2 K/uL (4.8-10.8)
[2025-05-21 01:29] LABS: CREATININE 0.9 mg/dL (0.5-1.3); GLOMERULAR FILTR. RATE CALC 112.0 mL/min (>90); GLUCOSE,RANDOM 101.0 mg/dL (70-105); SODIUM SERUM 141.0 mmol/L (136-145); UREA NITROGEN, BLOOD 14.0 mg/dL (7-18)
[2025-05-21 01:34] LABS: ASPARTATE AMINOTRANSFERASE 27.0 U/L (10-37); TOTAL PROTEIN, SERUM 7.1 g/dL (6.0-8.3)
--- NOTE | 2025-05-21 01:38 | ERN ---
General Chief Complaint: Abdominal Pain Stated Complaint: ABD PAIN, CONSTIPATION Time Seen by MD: 00:40 Source: patient History of Present Illness Initial Comments Patient is a 40-year-old gentleman coming in complaining of abdominal discomfort. Patient is states that the pain has been present for several weeks. He was evaluated at ER and was advised to follow up with the PCP but he states he has not been able to do so as he has no insurance. Long with the abdominal pain he states that he does have constipation has not been able to going to the restroom. Allergies: Coded Allergies: No Known Drug Allergies (Unverified Allergy, Unknown, 01/31/19) Home Meds Active Scripts Pantoprazole Sodium (Protonix) 40 Mg Ectab, 1 TAB PO DAILY for 30 Days, #30 TAB 0 Refills Prov:KIKI MCKINNEY MD 04/22/25 Clonidine HCl (Clonidine HCl) 0.2 Mg Tablet, 1 TAB PO BID for 30 Days, #60 TAB 0 Refills Prov:MARIE GARCIA 01/29/25 Hydroxyzine HCl (Atarax) 25 Mg Tab, 25 MG PO TID, #15 TAB Prov:KHUSHI IBANEZ MD 04/02/23 Acetaminophen (Tylenol) 500 Mg Tab, 500 MG PO Q6HPRN PRN for fever for 5 Days, #30 TAB Prov:KIKI MCKINNEY MD 12/24/21 Oseltamivir Phosphate (Tamiflu) 75 Mg Cap, 75 MG PO BID for 5 Days, #10 CAP Prov:KIKI MCKINNEY MD 12/24/21 Past Medical History Past Medical History: Diabetes-Type I, Hypertension Past Surgical History: Other Surgical History Other: RIGHT ANKLE SX FOR BONE SPUR Social History Social History: Negative ROS Dictation CONSTITUTIONAL: No chills, no fever, no weakness, no diaphoresis, no malaise. HEAD/FACE: No signs of trauma. EENT: No eye pain, no blurred vision, no tearing, no double vision, no ear pain, no ear discharge, no nose pain, no nasal congestion, no throat pain, no throat swelling, no mouth pain. RESPIRATORY: No cough, no orthopnea, no SOB, no stridor, no wheezing. CARDIOVASCULAR: No chest pain, no edema, no palpitations, no syncope. GASTROINTESTINAL/ABDOMINAL: abdominal pain, constipation, no diarrhea, no nausea, no vomiting. GENITOURINARY: No abnormal discharge, no dysuria, no frequent urination, no hematuria. No complaints of pain in the genitals. MUSCULOSKELETAL: No back pain, no gout, no joint pain, no joint swelling, no muscle pain, no muscle stiffness, no neck pain. INTEGUMENTARY: No change in color, no change in hair/nails, no dryness, no lesion, no lumps, no rash. NEUROLOGICAL/PSYCH: No anxiety, not depressed, no emotional problem, no headache, no numbness, no pre-existing deficit, no history of seizures, no tremors, no weakness. HEMATOLOGIC/LYMPHATIC: Not anemic, no history of blood clots, no apparent bleeding, no bruising, glands not swollen. All Systems Negative, Except as Noted. Physical Exam Physical Exam Dictation VITAL SIGNS: Reviewed. GENERAL APPEARANCE: Alert, oriented x3, no acute distress, obese. HEAD AND FACE: Non-traumatic. EYES: PERRL, pink conjunctivas, eyelid no trauma, anterior chamber clear. EARS: Pinnas intact and no signs of trauma or erythema. Ear canals clear and no discharge. TMs no erythema. NOSE: No discharge, no bleeding. OROPHARYNX: Mouth normal, teeth no caries, tongue pink. Pharynx clear, no erythema. Tonsils no exudates, no abscesses noted. Mucous membrane moist. NECK: Supple, non-tender, no thyromegaly, no masses, no JVD, no bruits. BREAST: Deferred. CHEST: No tenderness, no crepitus, no paradoxical movement, no retractions. LUNGS: Clear, well-ventilated, symmetric, no rales, no wheezing, no rhonchi, no stridor, good breath sounds bilaterally. HEART: Regular rate, regular rhythm, no murmur, no gallops. VASCULAR: No peripheral edema. ABDOMEN: Soft, positive bowel sounds, nondistended, no guarding, nontender, no rebound, no masses no hepatomegaly, no splenomegaly, no Morrow's sign, no hernias. RECTAL: Deferred. GENITAL: Deferred. NEUROLOGICAL: Normal speech, gross motor function intact, gross sensory function intact. MUSCULOSKELETAL: Neck nontender, full range of motion, back nontender, full range of motion. EXTREMITIES: Nontender, full range of motion. SKIN: Color pink, dry, no turgor, no rash, no lacerations, no abrasions, no contusions. LYMPHATICS: Deferred. Results Laboratory and Microbiology Lab and Micro Result Laboratory Tests Test 05/21/25 00:59 05/21/25 01:05 White Blood Count 7.2 K/uL (4.8-10.8) Red Blood Count 6.33 MIL/uL (4.50-6.20) H Hemoglobin 16.4 g/dL (14.0-18.0) Hematocrit 51.2 % (42-54) Mean Corpuscular Volume 80.9 fL (79-99) Mean Corpuscular Hemoglobin 25.9 pg (27.0-33.0) L Mean Corpuscular Hemoglobin Concent 32.0 g/dL (32.0-36.0) Red Cell Distribution Width 15.9 % (11.0-15.5) H Platelet Count 212 K/uL (130-400) Mean Platelet Volume 11.2 fL (7.5-10.5) H Immature Granulocyte % (Auto) 0.3 % (0-1) Neutrophils (%) (Auto) 51.4 % (40.0-77.0) Lymphocytes (%) (Auto) 35.3 % (21.0-51.0) Monocytes (%) (Auto) 9.6 % (3.0-13.0) Eosinophils (%) (Auto) 2.8 % (0.0-8.0) Basophils (%) (Auto) 0.6 % (0.0-5.0) Neutrophils # (Auto) 3.7 K/uL (1.8-7.7) Lymphocytes # (Auto) 2.5 K/uL (1.0-4.8) Monocytes # (Auto) 0.7 K/uL (0.1-1.0) Eosinophils # (Auto) 0.20 K/uL (0.00-0.70) Basophils # (Auto) 0.04 K/uL (0.00-0.20) Absolute Immature Granulocyte (auto 0.02 K/uL (0-1) Nucleated Red Blood Cells 0.0 % (0.0-0.19) Sodium Level 141 mmol/L (136-145) Potassium Level 3.8 mmol/L (3.5-5.1) Chloride Level 103 mmol/L (101-111) Carbon Dioxide Level 29 mmol/L (21-32) Blood Urea Nitrogen 14 mg/dL (7-18) Creatinine 0.9 mg/dL (0.5-1.3) Glomerular Filtration Rate Calc 112 mL/min (>90) Random Glucose 101 mg/dL (70-105) Total Calcium 8.6 mg/dL (8.5-10.1) Total Bilirubin 0.6 mg/dL (0.2-1.0) Aspartate Amino Transf (AST/SGOT) 27 U/L (10-37) Alanine Aminotransferase (ALT/SGPT) 67 U/L (12-78) Alkaline Phosphatase 76 U/L (50-136) Total Protein 7.1 g/dL (6.0-8.3) Albumin 3.6 g/dL (3.5-5.0) Urine Color COLORLESS (YELLOW) Urine Appearance CLEAR (CLEAR) Urine pH 6.0 (5.0-8.0) Urine Specific Merlin 1.005 (1.001-1.031) Urine Protein NEGATIVE mg/dL (NEGATIVE) Urine Glucose (UA) NEGATIVE mg/dL (NEGATIVE) Urine Ketones NEGATIVE mg/dL (NEGATIVE) Urine Occult Blood NEGATIVE (NEGATIVE) Urine Nitrate NEGATIVE (NEGATIVE) Urine Bilirubin NEGATIVE mg/dL (NEGATIVE) Urine Urobilinogen 0.2 mg/dL (0.2-1.0) Urine Leukocyte Esterase NEGATIVE Jaswant/uL Urine RBC /HPF (0-1) Urine WBC /HPF (0-1) Urine Bacteria /HPF (None Seen) Labs Reviewed?: Yes MDM MDM: Differential diagnosis: Constipation, cholecystitis, pancreatitis, Rationale: Tests considered and ordered secondary to shared decision making include: Previous outside records reviewed: Old ER visits. Risk of complication and/or morbidity or mortality of patient management: None Medications-Per medication reconciliation Need for hospitalization: Patient does not meet criteria for hospitalization. Need for emergency major/minor surgery: No Patient is a 40-year-old gentleman coming in complaining of abdominal discomfort. Patient states that this abdominal discomfort has been ongoing for several weeks. He was evaluated at another ER but states he has not followed up with his PCP due to lack of insurance. Laboratory workup today did not disclose any acute findings. Patient did state that he has not been able to defecate black he normally would in the past. Patient received Mag citrate as well as lactulose but he is pending to go home to use restroom. I did advised him appropriate follow up with the PCP for ongoing management. Patient will be discharged in stable condition p.o. challenge has been passed. ED Course Orders Procedure Category Date Status Time Cbc With Differential LAB 05/21/25 Complete 00:51 Comprehensive LAB 05/21/25 Complete Metabolic Panel 00:51 Urinalysis Profile LAB 05/21/25 Complete 00:51 0.9%Nacl 1000ml (Ns PHA 05/21/25 Complete 1000ml) 01:00 Magnesium Citrate PHA 05/21/25 Complete (Magnesium Citrate) 01:00 Lactulose 20 Gm/30 Ml PHA 05/21/25 Complete Udcup (Constulose 01:00 Current Medications Medications (Trade) Dose Ordered Sig/Aaron Route PRN Reason Start Time Stop Time Status Last Admin Dose Admin Lactulose (Constulose 20gm/ 30ml Udcup) 20 gm ONCE ONCE PO 05/21/25 01:00 05/21/25 01:01 DC 05/21/25 01:03 Magnesium Citrate (Magnesium Citrate) 296 ml ONCE ONCE PO 05/21/25 01:00 05/21/25 01:01 DC 05/21/25 01:03 Sodium Chloride 1,000 ml @ 0 mls/hr ONCE ONCE IV 05/21/25 01:00 05/21/25 01:01 DC 05/21/25 01:03 Vital Signs Date Time Temp Pulse Resp B/P (MAP) Pulse Ox O2 Delivery O2 Flow Rate FiO2 05/21/25 01:23 87 18 160/90 100 Room Air* 0 21 05/21/25 00:32 96.3 81 20 184/102 99 Room Air DX & DISP Disposition: Discharge Departure Impression: Primary Impression: Constipation Condition: Stable Scripts Lactulose (Lactulose) 10 Gram/15 Ml Solution 30 ML PO DAILY for constipation, #900 ML 0 Refills Prov: KIKI MCKINNEY MD 05/21/25 Additional Instructions: FOLLOW-UP WITH PRIMARY CARE PROVIDER IN 1 TO 2 DAYS. TAKE MEDICATIONS DIRECTED HERE IN THE EMERGENCY ROOM. OKAY TO CONTINUE HOME MEDICATIONS UNLESS OTHERWISE DISCUSSED DURING YOUR VISIT IN THE EMERGENCY ROOM TODAY. RETURN TO YOUR NEAREST EMERGENCY ROOM IF SYMPTOMS WORSEN OR IF THERE IS NO IMPROVEMENT. CALL 911 IF YOU NEED IMMEDIATE ASSISTANCE. TAKE TYLENOL [id number] NEEDED AND IF NO CONTRAINDICATIONS ARE PRESENT. INCREASE ORAL HYDRATION. A WOUND CULTURE OR URINE CULTURE WAS ORDERED HERE IN THE EMERGENCY ROOM DEPARTMENT PLEASE FOLLOW-UP WITH PRIMARY CARE PROVIDER AND ADVISE THEM TO GET REPORTS FROM OUR FACILITY. IF YOU HAD ANY PB WRAP/SPLINTS THAT WERE APPLIED HERE, PLEASE DO NOT REMOVE THEM UNTIL YOU SEE YOUR PRIMARY CARE OR SPECIALTY. Referrals: Referrals: SELF,REFERRAL (PCP) CARMEN SIU MD Time of Disposition: 02:12 KIKI MCKINNEY MD May 21, 2025 01:38
[2025-05-21 02:06] LABS: APPEARANCE,URINE CLEAR (CLEAR); GLUCOSE, URINE (UA) NEGATIVE (NEGATIVE); LEUKOCYTE ESTERASE ,URINE NEGATIVE Leu/uL (NEGATIVE); NITRATE,URINE NEGATIVE (NEGATIVE); OCCULT BLOOD,URINE NEGATIVE (NEGATIVE)
[2025-05-21 02:07] LABS: ADD UA MICROSCOPIC NO
[2025-05-21] MEDS ORDERED: LACT10SO85 PO (02:12)
[2025-05-21 02:22] VITALS: BP 158/76; PULSE 85; RESP 18; TEMP 98.3; O2SAT 98
== END 2025-05-21 02:23 | disposition home or self-care (01) ==
LOC: EDH 00:30
DX: K59.00 Constipation, unspecified (principal); E10.9 Type 1 diabetes mellitus without complications; I10 Essential (primary) hypertension; Z59.71 Insufficient health insurance coverage; Z79.899 Other long term (current) drug therapy
CPT/HCPCS: 99283; 96360; 80053; 85025; 81001; 36415; 81003; J7030